=== PATIENT | female | born 1980 | race Caucasian/White ===

== ENCOUNTER 2017-08-06 05:45 | Emergency (ER) | payer BC ==
[~2017-08-06] VITALS: Ht 170.2 cm; Wt 104.3 kg
[2017-08-06] MEDS ORDERED: OMEPRAZOLE40 MG PO (06:14)
[2017-08-06] MEDS ORDERED: AMLODIPINE BESY10 MG PO (06:14)
[2017-08-06] MEDS ORDERED: METHYLPREDNISOLONE SOD SUCC 125 MG/2ML VIAL IM ONE (06:15)
[2017-08-06] MEDS ORDERED: DIPHENHYDRAMINE HCL INJ 50 MG/ML VIAL IM ONE (06:15)
== END 2017-08-06 06:20 | disposition home or self-care (01) ==
LOC: FSED 05:45
DX: L50.0 Allergic urticaria (principal)
CPT/HCPCS: 99282; J1200; J2930